=== PATIENT | female | born 1990 | race Caucasian/White ===

== ENCOUNTER 2021-05-06 22:54 | Inpatient (IN) | payer BC ==
[2021-05-06 23:26] VITALS: BMI 28.3
[2021-05-07] MEDS ORDERED: hydrALAZINE 20 MG/ML VIAL SLOW IVP PRN ×2 (00:11→03:30)
[2021-05-07] MEDS ORDERED: Promethazine HCl 25 MG/ML VIAL IM PRN ×2 (03:30→19:00)
[2021-05-07] MEDS ORDERED: Ondansetron PF 4 MG/2 ML Vial IVP PRN (03:30)
[2021-05-07] MEDS ORDERED: Diphenoxylate HCl/Atropine Tablet PO PRN ×2 (03:30)
[2021-05-07] MEDS ORDERED: NS w/ Oxytocin 30 units 500 ML IVPB SCH (03:30)
[2021-05-07] MEDS ORDERED: Penicillin G Potassium 5 MILL.UNITS in Sodium Chloride 0.9% 100 ML IVPB SCH (03:30)
[2021-05-07] MEDS ORDERED: Carboprost 250 MCG/ML AMP IM PRN (03:30)
[2021-05-07] MEDS ORDERED: Misoprostol 200 MCG TAB PR PRN (03:30)
[2021-05-07] MEDS ORDERED: NS w/ Oxytocin 30 units 500 ML IV SCH ×2 (03:30)
[2021-05-07] MEDS ORDERED: Methylergonovine 0.2 MG/ML VIAL IM PRN (03:30)
[2021-05-07] MEDS ORDERED: Lidocaine 1% (PF) 30 ML VIAL SC PRN (03:30)
[2021-05-07] MEDS ORDERED: Ibuprofen 800 MG TAB PO PRN (03:30)
[2021-05-07] MEDS ORDERED: Penicillin G Potassium 5 MILL.UNITS VIAL ONE (04:09)
[2021-05-07 04:10] LABS: Hemoglobin 11.4 g/dL (12.0-15.5); Mean Corpuscular HGB CONC 31.8 g/dL (32.0-36.0); Mean Corpuscular Hemoglobin 24.9 pg (27.0-33.0); Mean Corpuscular Volume 78.4 fl (81.6-98.3); Mean Platelet Volume 11.9 fl (7.4-10.4); Platelet Count 234 10x3/uL (150-450); RBC Distribution Width 16.8 % (11.5-14.5); Red Blood Cell (RBC) Count 4.58 10x6/uL (3.90-5.03); White Blood Cell (WBC) Count 13.7 10x3/uL (3.5-10.5)
[2021-05-07 04:36] LABS: Syphilis Antibody Nonreactive (Nonreactive); Syphilis Antibody Index 0.04 S/CO (<1.00 Non-Reactive)
[2021-05-07 04:37] LABS: HIV (1/2) Antibody/Antigen Non-Reactive (NonReactive); HIV 1/2 INDEX 0.06 S/CO (<1.00); Hep B Surf Ag Non-Reactive S/CO (NonReactive)
[2021-05-07 04:47] LABS: HBSAg Index 0.19 S/CO (0-0.99)
[2021-05-07 05:52] LABS: SARS-CoV-2 NAA Rapid Test Not Detected (NotDetected)
[2021-05-07] MEDS: Lactated Ringer's 1,000 ML IV SCH (08:05)
[2021-05-07] MEDS: Penicillin G 2.5 MILL.units 2.5 MILL.UNITS in Premix Bag 1 BAG IVPB SCH ×2 (08:06→12:05)
[2021-05-07] MEDS ORDERED: Meperidine HCl/PF 25 MG/ML VIAL IM PRN (18:59)
[2021-05-07] MEDS ORDERED: hydrOXYzine Pamoate 25 mg Capsule PO SCH ×2 (19:00)
[2021-05-08] MEDS: Lactated Ringer's 1,000 ML IV SCH ×2 (04:23→11:02)
[2021-05-08] MEDS: Penicillin G 2.5 MILL.units 2.5 MILL.UNITS in Premix Bag 1 BAG IVPB SCH ×5 (04:24→23:43)
[2021-05-08] MEDS ORDERED: Fentanyl 2 mcg/Bup 0.1% Cadd 100 ML ONE ×2 (10:30→18:07)
[2021-05-08] MEDS ORDERED: Acetaminophen 500 MG TAB PO SCH (22:00)
[2021-05-08] MEDS ORDERED: Gentamicin 330 MG, Admixture Fee 1 EACH in Sodium Chloride 0.9% 100 ML IVPB SCH (22:30)
[2021-05-09 01:50] LABS: pH (Cord, venous) 7.113 (7.250-7.350)
[2021-05-09] MEDS ORDERED: Lanolin Ointment 7 GM TUBE TOP PRN (02:25)
[2021-05-09] MEDS ORDERED: Benzocaine-Menthol 82.5 ML CAN TOP PRN (02:25)
[2021-05-09] MEDS ORDERED: HYDROcodone/Acetaminophen 5/325 mg Tablet PO PRN (02:25)
[2021-05-09] MEDS ORDERED: Milk Of Magnesia 30 ML UDCUP PO PRN (02:25)
[2021-05-09] MEDS ORDERED: Measles/Mumps/Rubella 10 MCG/0.5 ML VIAL SC ONE (02:25)
[2021-05-09] MEDS ORDERED: Misoprostol 200 MCG TAB VAG PRN (02:25)
[2021-05-09] MEDS ORDERED: Bisacodyl 10 MG SUPP PR PRN (02:25)
[2021-05-09] MEDS ORDERED: NS w/ Oxytocin 30 units 500 ML IV SCH (02:25)
[2021-05-09] MEDS ORDERED: Ondansetron PF 4 MG/2 ML Vial IVP PRN (02:25)
[2021-05-09] MEDS ORDERED: Boostrix 0.5 ML (Tdap) VIAL IM ONE (02:25)
[2021-05-09] MEDS ORDERED: hydrALAZINE 20 MG/ML VIAL SLOW IVP PRN (02:25)
[2021-05-09] MEDS: HYDROcodone/Acetaminophen 5/325 mg Tablet PO PRN ×4 (03:04→21:52)
[2021-05-09] MEDS: Docusate Calcium (SURFAK) 240 MG CAP PO SCH ×2 (08:37→21:49)
[2021-05-09] MEDS: Ibuprofen 800 MG TAB PO SCH ×3 (08:37→21:50)
[2021-05-09] MEDS: Prenatal Vitamin 1 TAB PO SCH (08:37)
[2021-05-09] MEDS: Ferrous Sulfate 325 MG TAB PO SCH ×2 (08:38→18:18)
[2021-05-09] MEDS: Lactated Ringer's 1,000 ML IV SCH (08:53)
[2021-05-09] MEDS: Penicillin G 2.5 MILL.units 2.5 MILL.UNITS in Premix Bag 1 BAG IVPB SCH (08:53)
[2021-05-10] MEDS: Ibuprofen 800 MG TAB PO SCH ×3 (05:11→20:43)
[2021-05-10] MEDS: Ferrous Sulfate 325 MG TAB PO SCH ×2 (07:56→17:14)
[2021-05-10] MEDS: Docusate Calcium (SURFAK) 240 MG CAP PO SCH ×2 (07:57→20:43)
[2021-05-10] MEDS: Prenatal Vitamin 1 TAB PO SCH (07:57)
[2021-05-10] MEDS: HYDROcodone/Acetaminophen 5/325 mg Tablet PO PRN (13:35)
[2021-05-11] MEDS: HYDROcodone/Acetaminophen 5/325 mg Tablet PO PRN ×2 (00:41→16:04)
[2021-05-11] MEDS: Ibuprofen 800 MG TAB PO SCH ×2 (06:52→14:26)
[2021-05-11 07:58] VITALS: BP 112/69; TEMP 98.3
[2021-05-11] MEDS: Prenatal Vitamin 1 TAB PO SCH (09:33)
[2021-05-11] MEDS: Ferrous Sulfate 325 MG TAB PO SCH (09:33)
[2021-05-11] MEDS: Docusate Calcium (SURFAK) 240 MG CAP PO SCH (09:33)
== END 2021-05-11 16:10 | disposition home or self-care (01) | DRG 805 ==
LOC: CSHLD/OP 22:54 → CSHLD 05-07 03:31 → CSHPP 05-09 04:45
PROVIDERS: ADMIT Obstetrics & Gynecology; ATTEND Obstetrics & Gynecology
PROC: 10E0XZZ Delivery of Products of Conception, External Approach (ICD-10-PCS; principal; 2021-05-09)
DX: O99.824 Streptococcus B carrier state complicating childbirth (principal); O41.1230 Chorioamnionitis, third trimester, not applicable or unspecified; Z37.0 Single live birth; Z3A.39 39 weeks gestation of pregnancy; Z20.822 Contact with and (suspected) exposure to COVID-19; O34.211 Maternal care for low transverse scar from previous cesarean delivery; O64.0XX0 Obstructed labor due to incomplete rotation of fetal head, not applicable or unspecified; O36.63X0 Maternal care for excessive fetal growth, third trimester, not applicable or unspecified; Z79.899 Other long term (current) drug therapy; Z91.09 Other allergy status, other than to drugs and biological substances
CPT/HCPCS: 51702; 82805; 85027; 86780; 86850; 86900; 86901; 87340; 87389; 88307; 99285; J1580; J2540; J2590; J3490; J7120; Q0177; U0002

== ENCOUNTER 2021-10-12 14:47 | Emergency (ER) | payer BC ==
[2021-10-12] MEDS ORDERED: Iopamidol 300 61% 100 ML VIAL FS ONE (15:29)
[2021-10-12 15:47] LABS: Pregnancy Test - Urine (BHCG) Negative (Negative); Pregu Control Background? CLEAR/WHITE (CLR/WHITE); Pregu Control Bar Appear? YES (CONTROL BAR)
[2021-10-12] MEDS ORDERED: Ondansetron PF 4 MG/2 ML Vial ONE (16:09)
[2021-10-12] MEDS ORDERED: Ketorolac Tromethamine 30 MG/ML VIAL ONE (16:09)
[2021-10-12 16:10] LABS: Bacteria/HPF Rare-Few HPF (None Seen); Bilirubin Neg (Negative); Blood, Urine Negative (Negative); Clarity Slightly Cloudy (Clear); Glucose, Urine (Dipstick) Normal (Negative); Ketone, Urine Negative (Negative); Leukocyte 500 (Negative); Nitrite Negative (Negative); Protein, Urine (Dipstick) 15 mg/dl (Neg-Trace); RBC/HPF 0-3 HPF (0-3); Squamous Epithelial 0-3 HPF (0-3); Urobilinogen Normal mg/dL (Less than 2)
[2021-10-12 16:14] LABS: Hemoglobin 14.2 g/dL (12.0-15.5); MDiff Complete? YES; Mean Corpuscular HGB CONC 32.7 g/dL (32.0-36.0); Mean Corpuscular Hemoglobin 27.5 pg (27.0-33.0); Mean Corpuscular Volume 84.1 fl (81.6-98.3); Mean Platelet Volume 10.2 fl (7.4-10.4); Platelet Count 218 10x3/uL (150-450); RBC Distribution Width 13.8 % (11.5-14.5); Red Blood Cell (RBC) Count 5.16 10x6/uL (3.90-5.03); White Blood Cell (WBC) Count 9.3 10x3/uL (3.5-10.5)
[2021-10-12 16:33] LABS: Carbon Dioxide 25 mmol/L (22-29); Chloride 105 mmol/L (98-107); Potassium 3.9 mmol/L (3.5-5.1); Sodium 139 mmol/L (136-145)
[2021-10-12 16:35] LABS: Anion Gap 13 mmol/L (10-20); BUN (Urea Nitrogen) 9 mg/dL (7.0-18.7); Calc. Creatinine Clearance 0 mL/min (70-130); Glucose 104 mg/dL (70-105)
[2021-10-12 16:36] LABS: ALT (SGPT) 16 U/L (8-55); AST (SGOT) 20 U/L (5-34); Albumin 4.3 g/dL (3.5-5.0); Alkaline Phosphatase 81 U/L (40-110); Bilirubin, Total 0.4 mg/dL (0.2-1.2); Calcium 9.3 mg/dL (7.8-10.44); Globulin 3.3 g/dL (2.4-3.5); Lipase 23 U/L (8-78); Protein, Total 7.6 g/dL (6.0-8.3)
[2021-10-12 16:47] LABS: Monocytes 19 % (0-10)
[2021-10-12 16:49] LABS: Lymphocytes 22 % (21-51); Neutrophil 59 % (42-75)
[2021-10-12] MEDS ORDERED: Acetaminophen 500 MG TAB ONE (17:57)
== END 2021-10-12 18:21 | disposition home or self-care (01) ==
LOC: CSHERS 14:47
DX: K44.9 Diaphragmatic hernia without obstruction or gangrene (principal); K76.89 Other specified diseases of liver; N28.1 Cyst of kidney, acquired
CPT/HCPCS: 74177; 76705; 80053; 81003; 81015; 81025; 83690; 85025; 87804; 96374; 96375; J1885; J2405; Q9967